=== PATIENT | female | born 1935 | race Caucasian/White ===

== ENCOUNTER 2018-03-15 14:06 | Inpatient (IN) | payer MEDICARE ==
[~2018-03-15] VITALS: Ht 160 cm; Wt 55.6 kg
[2018-03-15] MEDS ORDERED: ipratropium/albuterol 3ml nebule NEB ONE (14:15)
[2018-03-15] MEDS ORDERED: methylPREDNISolone sod succ 125mg/2ml vial IV ONE (14:15)
[2018-03-15 14:36] LABS: BASOPHILS % (AUTO) 0.1 % (0-1); EOSINOPHILS # (AUTO) 0.2 X10'3 (0-0.9); EOSINOPHILS % (AUTO) 1.6 % (0-6); HEMATOCRIT 33.7 % (35.0-45.0); HEMOGLOBIN 11.3 g/dl (12.0-16.0); LYMPHOCYTES # (AUTO) 1.7 X10'3 (1.1-4.8); LYMPHOCYTES % (AUTO) 10.7 % (21-51); MEAN CORPUSCULAR HEMOGLOBIN 29.2 PG (27.0-31.0); MEAN CORPUSCULAR HGB CONC 33.5 % (33.0-36.5); MEAN CORPUSCULAR VOLUME 87.2 FL (78-98); MEAN PLATELET VOLUME 7.6 FL (7.4-10.4); MONOCYTES % (AUTO) 6.4 % (2-12); NEUTROPHILS # (AUTO) 12.7 X10'3 (1.8-7.7); NEUTROPHILS % (AUTO) 81.2 % (42-75); PLATELET COUNT 330 X10'3 (140-440); RED BLOOD COUNT 3.86 X10'6 (4.20-5.60); RED CELL DISTRIBUTION WIDTH 14.7 % (11.5-14.5); WHITE BLOOD COUNT 15.6 X10'3 (4.5-11.0)
[2018-03-15 15:04] LABS: ALANINE AMINOTRANSFERASE 12 U/L (12-78); ALBUMIN 2.1 G/DL (3.4-5.0); ALBUMIN/GLOBULIN RATIO 0.4 (1.1-1.5); ALKALINE PHOSPHATASE 99 IU/L (46-116); ANION GAP 9 (8-16); ASPARTATE AMINO TRANSFERASE 34 U/L (10-37); BILIRUBIN,TOTAL 1.1 MG/DL (0.1-1.0); BLOOD UREA NITROGEN 13 MG/DL (7-18); BUN/CREATININE RATIO 16.9 (6.6-38.0); CALCIUM 9.3 MG/DL (8.5-10.1); CHLORIDE 91 MMOL/L (99-107); CREATININE 0.77 MG/DL (0.40-0.90); GLUCOSE 145 MG/DL (70-104); SODIUM 131 MMOL/L (135-145); TOTAL CARBON DIOXIDE 30.9 MMOL/L (24-32); TOTAL PROTEIN 7.1 G/DL (6.4-8.2); eGFR 72 ML/MIN
[2018-03-15 15:07] LABS: POTASSIUM 2.5 MMOL/L (3.5-5.1)
[2018-03-15] MEDS ORDERED: potassium Cl oral solution 20 MEQ/15 ML PO ONE (15:15)
[2018-03-15] MEDS ORDERED: CefTRIAXone 2gm/D5W 50ml 50 ML IV ONE (15:35)
[2018-03-15] MEDS ORDERED: azithromycin/NS 500mg/250ml 250 ML IV ONE (15:35)
[2018-03-15 15:47] LABS: CLARITY,URINE CLEAR (Clear); GLUCOSE, URINE NEGATIVE (Neg); KETONES,URINE >=80 mg/dl (Neg); LEUKOCYTE ESTERASE ,URINE NEGATIVE (Neg); NITRITES, URINE NEGATIVE (Neg); OCCULT BLOOD,URINE NEGATIVE (Neg); PROTEIN,URINE 30 mg/dl (Neg)
[2018-03-15 15:50] LABS: COLOR,URINE DARK YELLOW (Yellow); UA COLLECTION TYPE STRAIGHT CATH
[2018-03-15 15:54] LABS: BACTERIA,URINE 2+ /HPF (Neg); RBC,URINE 0-2 /HPF (0-2); SQUAMOUS EPITHELIAL CELL,UR FEW /LPF (FEW)
[2018-03-15 15:56] LABS: RENAL CELLS, URINE FEW /HPF
[2018-03-15 15:57] LABS: CELLULAR CAST 0-4 /LPF (NEGATIVE); HYALINE CASTS 0-3 /LPF (NEGATIVE)
[2018-03-15] MEDS ORDERED: enoxaparin 100mg/ml syringe SUBCUT ONE (16:25)
[2018-03-15] MEDS ORDERED: aspirin 81mg tab.chew PO ONE (16:25)
[2018-03-15] MEDS ORDERED: magnesium Cl slow-release 64mg tablet PO PRN (16:35)
[2018-03-15] MEDS ORDERED: magnesium 4gm in 100ml NS 100 ML IV PRN (16:35)
[2018-03-15] MEDS ORDERED: magnesium 1gm/100ml D5W IVPB 100 ML IV PRN (16:35)
[2018-03-15] MEDS ORDERED: magnesium hydroxide 30ml (MOM) UD suspension PO PRN (16:35)
[2018-03-15] MEDS ORDERED: potassium Cl 40MEQ/NS 500ml 500 ML IV PRN ×2 (16:35)
[2018-03-15] MEDS ORDERED: acetaminophen 325mg tablet PO PRN (16:35)
[2018-03-15] MEDS ORDERED: mag hydrox/Alum hydrox/simeth 30ml oral suspension PO PRN (16:35)
[2018-03-15] MEDS ORDERED: potassium Cl 20 mEq SR tablet PO PRN (16:35)
[2018-03-15] MEDS ORDERED: ondansetron/PF 4mg/2ml inj IV PRN (16:35)
[2018-03-15] MEDS ORDERED: non-formulary drug (Albuterol Sulfate (Proair Hfa) 2 PUFFS) INH SCH (16:40)
[2018-03-15] MEDS ORDERED: CefTRIAXone/D5W-Rocephin 1gm 50 ML IV SCH (16:40)
[2018-03-15] MEDS ORDERED: HYDR12.5 PO (16:41)
[2018-03-15] MEDS ORDERED: CARV-50 PO (16:41)
[2018-03-15] MEDS ORDERED: SIMV20TA5 PO (16:41)
[2018-03-15] MEDS ORDERED: PANT40TA4 PO (16:41)
[2018-03-15] MEDS ORDERED: CLOP75TA35 PO (16:41)
[2018-03-15] MEDS ORDERED: MONT10TA24 PO (16:41)
[2018-03-15] MEDS ORDERED: ALBU8.5H8 INH (16:42)
[2018-03-15] MEDS ORDERED: albuterol 2.5 MG/3 ML nebule NEB PRN (16:55)
[2018-03-15] MEDS: normal saline 1000ml 1,000 ML IV SCH (17:12)
[2018-03-15] MEDS ORDERED: iohexol 300mg/ml 100ml inj. ONE (18:00)
[2018-03-15 19:00] VITALS: BP 122/61
[2018-03-15] MEDS ORDERED: non-formulary drug (Simvastatin* (Zocor*) 20 MG) PO SCH (21:00)
[2018-03-15] MEDS: atorvastatin 10mg tablet PO SCH (21:54)
[2018-03-15] MEDS: carVEDilol 12.5mg tablet PO SCH (21:55)
[2018-03-15] MEDS: heparin, porcine 5000 units/ml vial SQ SCH (21:55)
[2018-03-15 23:00] VITALS: BP 107/52
[2018-03-16 02:55] LABS: ALANINE AMINOTRANSFERASE 13 U/L (12-78); ALBUMIN 1.6 G/DL (3.4-5.0); ALBUMIN/GLOBULIN RATIO 0.4 (1.1-1.5); ALKALINE PHOSPHATASE 84 IU/L (46-116); ANION GAP 7 (8-16); ASPARTATE AMINO TRANSFERASE 22 U/L (10-37); BILIRUBIN,TOTAL 0.5 MG/DL (0.1-1.0); BLOOD UREA NITROGEN 15 MG/DL (7-18); BUN/CREATININE RATIO 22.1 (6.6-38.0); CALCIUM 8.6 MG/DL (8.5-10.1); CHLORIDE 96 MMOL/L (99-107); CREATININE 0.68 MG/DL (0.40-0.90); GLUCOSE 184 MG/DL (70-104); POTASSIUM 3.2 MMOL/L (3.5-5.1); SODIUM 133 MMOL/L (135-145); TOTAL CARBON DIOXIDE 30.2 MMOL/L (24-32); TOTAL PROTEIN 5.9 G/DL (6.4-8.2); eGFR 83 ML/MIN
[2018-03-16 02:59] LABS: MAGNESIUM 1.9 MG/DL (1.5-2.4)
[2018-03-16 03:00] VITALS: BP 107/48
[2018-03-16 05:54] LABS: BASOPHILS % (AUTO) 0.1 % (0-1); EOSINOPHILS % (AUTO) 0.2 % (0-6); HEMATOCRIT 28.9 % (35.0-45.0); HEMOGLOBIN 9.9 g/dl (12.0-16.0); LYMPHOCYTES # (AUTO) 1.1 X10'3 (1.1-4.8); LYMPHOCYTES % (AUTO) 14.7 % (21-51); MEAN CORPUSCULAR HEMOGLOBIN 29.8 PG (27.0-31.0); MEAN CORPUSCULAR HGB CONC 34.2 % (33.0-36.5); MEAN PLATELET VOLUME 8.6 FL (7.4-10.4); MONOCYTES # (AUTO) 0.2 X10'3 (0-0.9); MONOCYTES % (AUTO) 2.7 % (2-12); NEUTROPHILS # (AUTO) 6.3 X10'3 (1.8-7.7); NEUTROPHILS % (AUTO) 82.3 % (42-75); PLATELET COUNT 249 X10'3 (140-440); RED BLOOD COUNT 3.33 X10'6 (4.20-5.60); RED CELL DISTRIBUTION WIDTH 14.2 % (11.5-14.5); WHITE BLOOD COUNT 7.6 X10'3 (4.5-11.0)
[2018-03-16 06:00] VITALS: BP 108/51
[2018-03-16] MEDS: K and/or MAG REPLACEMENT MC SCH (08:00)
[2018-03-16] MEDS: pantoprazole 40mg Tablet.DR PO SCH (08:36)
[2018-03-16] MEDS: montelukast 10mg tablet PO SCH (08:36)
[2018-03-16] MEDS: clopidogrel 75mg tablet PO SCH (08:37)
[2018-03-16] MEDS: azithromycin/NS 500mg/250ml 250 ML IV SCH (08:40)
[2018-03-16] MEDS: carVEDilol 12.5mg tablet PO SCH ×2 (08:49→20:00)
[2018-03-16] MEDS: heparin, porcine 5000 units/ml vial SQ SCH ×2 (08:50→20:00)
[2018-03-16] MEDS: CefTRIAXone/D5W-Rocephin 1gm 50 ML IV SCH (08:50)
[2018-03-16 11:00] VITALS: BP 122/48
[2018-03-16] MEDS: potassium Cl 20 mEq SR tablet PO PRN ×3 (12:26→20:51)
[2018-03-16 15:00] VITALS: BP 116/50
[2018-03-16] MEDS: normal saline 1000ml 1,000 ML IV SCH ×2 (15:00→21:27)
[2018-03-16 19:00] VITALS: BP 125/43
[2018-03-16] MEDS: atorvastatin 10mg tablet PO SCH (20:51)
[2018-03-16 23:00] VITALS: BP 103/48
[2018-03-17 06:00] VITALS: BP 111/53
[2018-03-17] MEDS: K and/or MAG REPLACEMENT MC SCH (08:00)
[2018-03-17] MEDS: azithromycin/NS 500mg/250ml 250 ML IV SCH (08:00)
[2018-03-17] MEDS: normal saline 1000ml 1,000 ML IV SCH (08:11)
[2018-03-17] MEDS: CefTRIAXone/D5W-Rocephin 1gm 50 ML IV SCH (08:17)
[2018-03-17] MEDS: heparin, porcine 5000 units/ml vial SQ SCH ×2 (08:27→20:15)
[2018-03-17] MEDS: carVEDilol 12.5mg tablet PO SCH ×2 (08:37→20:14)
[2018-03-17] MEDS: pantoprazole 40mg Tablet.DR PO SCH (08:37)
[2018-03-17] MEDS: clopidogrel 75mg tablet PO SCH (08:37)
[2018-03-17] MEDS: montelukast 10mg tablet PO SCH (08:38)
[2018-03-17 08:51] LABS: BASOPHILS # (AUTO) 0.1 X10'3 (0-0.2); BASOPHILS % (AUTO) 0.8 % (0-1); EOSINOPHILS % (AUTO) 0.1 % (0-6); HEMATOCRIT 35.4 % (35.0-45.0); HEMOGLOBIN 11.6 g/dl (12.0-16.0); LYMPHOCYTES # (AUTO) 1.8 X10'3 (1.1-4.8); LYMPHOCYTES % (AUTO) 19.3 % (21-51); MEAN CORPUSCULAR HEMOGLOBIN 29.1 PG (27.0-31.0); MEAN CORPUSCULAR HGB CONC 32.8 % (33.0-36.5); MEAN CORPUSCULAR VOLUME 88.7 FL (78-98); MEAN PLATELET VOLUME 7.8 FL (7.4-10.4); MONOCYTES # (AUTO) 0.6 X10'3 (0-0.9); MONOCYTES % (AUTO) 6.2 % (2-12); NEUTROPHILS # (AUTO) 6.9 X10'3 (1.8-7.7); NEUTROPHILS % (AUTO) 73.6 % (42-75); PLATELET COUNT 349 X10'3 (140-440); RED BLOOD COUNT 3.99 X10'6 (4.20-5.60); RED CELL DISTRIBUTION WIDTH 14.9 % (11.5-14.5); WHITE BLOOD COUNT 9.4 X10'3 (4.5-11.0)
[2018-03-17 09:01] LABS: ALBUMIN 1.9 G/DL (3.4-5.0); ANION GAP 5 (8-16); BLOOD UREA NITROGEN 12 MG/DL (7-18); CALCIUM 8.5 MG/DL (8.5-10.1); CHLORIDE 104 MMOL/L (99-107); GLUCOSE 103 MG/DL (70-104); MAGNESIUM 1.6 MG/DL (1.5-2.4); POTASSIUM 3.3 MMOL/L (3.5-5.1); SODIUM 141 MMOL/L (135-145); TOTAL CARBON DIOXIDE 32.5 MMOL/L (24-32); eGFR 69 ML/MIN
[2018-03-17 11:00] VITALS: BP 139/60
[2018-03-17] MEDS: levoFLOXACIN 500mg tablet PO SCH (11:26)
[2018-03-17] MEDS: potassium Cl 20 mEq SR tablet PO PRN ×2 (11:42→15:41)
[2018-03-17 15:00] VITALS: BP 112/50
[2018-03-17 18:00] VITALS: BP 139/65
[2018-03-17] MEDS: atorvastatin 10mg tablet PO SCH (20:14)
[2018-03-17] MEDS: lactobacillus rhamnosus 10,000 MMU CELLS/CAPSULE PO SCH (20:15)
[2018-03-17 22:00] VITALS: BP 110/49
[2018-03-18] MEDS: potassium Cl 20 mEq SR tablet PO PRN (01:24)
[2018-03-18 02:00] VITALS: BP 116/53
[2018-03-18] MEDS: normal saline 1000ml 1,000 ML IV SCH (02:03)
[2018-03-18 05:43] LABS: BASOPHILS % (AUTO) 0.4 % (0-1); EOSINOPHILS # (AUTO) 0.1 X10'3 (0-0.9); EOSINOPHILS % (AUTO) 1.5 % (0-6); HEMATOCRIT 30.5 % (35.0-45.0); HEMOGLOBIN 10.2 g/dl (12.0-16.0); LYMPHOCYTES # (AUTO) 1.7 X10'3 (1.1-4.8); LYMPHOCYTES % (AUTO) 31.3 % (21-51); MEAN CORPUSCULAR HEMOGLOBIN 29.5 PG (27.0-31.0); MEAN CORPUSCULAR HGB CONC 33.6 % (33.0-36.5); MEAN CORPUSCULAR VOLUME 87.9 FL (78-98); MEAN PLATELET VOLUME 8.1 FL (7.4-10.4); MONOCYTES # (AUTO) 0.5 X10'3 (0-0.9); MONOCYTES % (AUTO) 8.6 % (2-12); NEUTROPHILS # (AUTO) 3.2 X10'3 (1.8-7.7); NEUTROPHILS % (AUTO) 58.2 % (42-75); PLATELET COUNT 281 X10'3 (140-440); RED BLOOD COUNT 3.46 X10'6 (4.20-5.60); RED CELL DISTRIBUTION WIDTH 15.1 % (11.5-14.5); WHITE BLOOD COUNT 5.5 X10'3 (4.5-11.0)
[2018-03-18 06:00] VITALS: BP 132/54
[2018-03-18 07:38] LABS: ALANINE AMINOTRANSFERASE 13 U/L (12-78); ALBUMIN 1.7 G/DL (3.4-5.0); ALBUMIN/GLOBULIN RATIO 0.5 (1.1-1.5); ALKALINE PHOSPHATASE 69 IU/L (46-116); ANION GAP 4 (8-16); ASPARTATE AMINO TRANSFERASE 15 U/L (10-37); BILIRUBIN,TOTAL 0.3 MG/DL (0.1-1.0); BLOOD UREA NITROGEN 9 MG/DL (7-18); CALCIUM 8.7 MG/DL (8.5-10.1); CHLORIDE 107 MMOL/L (99-107); CREATININE 0.75 MG/DL (0.40-0.90); GLUCOSE 91 MG/DL (70-104); MAGNESIUM 1.6 MG/DL (1.5-2.4); POTASSIUM 4.3 MMOL/L (3.5-5.1); SODIUM 141 MMOL/L (135-145); TOTAL CARBON DIOXIDE 29.7 MMOL/L (24-32); TOTAL PROTEIN 5.4 G/DL (6.4-8.2); eGFR 74 ML/MIN
[2018-03-18] MEDS: heparin, porcine 5000 units/ml vial SQ SCH (07:40)
[2018-03-18] MEDS: CefTRIAXone/D5W-Rocephin 1gm 50 ML IV SCH ×2 (07:40→07:50)
[2018-03-18] MEDS: clopidogrel 75mg tablet PO SCH (07:41)
[2018-03-18] MEDS: montelukast 10mg tablet PO SCH (07:41)
[2018-03-18] MEDS: pantoprazole 40mg Tablet.DR PO SCH (07:41)
[2018-03-18] MEDS: lactobacillus rhamnosus 10,000 MMU CELLS/CAPSULE PO SCH (07:41)
[2018-03-18] MEDS: carVEDilol 12.5mg tablet PO SCH (07:41)
[2018-03-18] MEDS: azithromycin/NS 500mg/250ml 250 ML IV SCH (08:00)
[2018-03-18] MEDS: K and/or MAG REPLACEMENT MC SCH (08:00)
[2018-03-18 11:00] VITALS: BP 130/79
[2018-03-18] MEDS: levoFLOXACIN 500mg tablet PO SCH (12:30)
[2018-03-18] MEDS ORDERED: LEVO500T89 PO (13:38)
[2018-03-18] MEDS ORDERED: ASPI81TA30 PO (13:40)
== END 2018-03-18 17:48 | disposition home or self-care (01) | DRG 871 ==
LOC: ER 14:06 → ED HOLD 16:31 → CMPBEDREQ 19:28 → PCU 3S 19:32
PROVIDERS: ADMIT Internal Medicine; ATTEND Internal Medicine
DX: A41.9 Sepsis, unspecified organism (principal); J18.1 Lobar pneumonia, unspecified organism; I50.23 Acute on chronic systolic (congestive) heart failure; E87.1 Hypo-osmolality and hyponatremia; N39.0 Urinary tract infection, site not specified; J44.0 Chronic obstructive pulmonary disease with (acute) lower respiratory infection; I11.0 Hypertensive heart disease with heart failure; E87.6 Hypokalemia; E86.0 Dehydration; E78.00 Pure hypercholesterolemia, unspecified; R91.1 Solitary pulmonary nodule; R59.0 Localized enlarged lymph nodes; Z79.899 Other long term (current) drug therapy
CPT/HCPCS: 36415; 71045; 71260; 80048; 80053; 81001; 83605; 83735; 83880; 84145; 84484; 85025; 87040; 87070; 87088; 93005; 93306; 94640; 94760; 96365; 96368; 96375; 97110; 97116; 97161; 97530; 99285; A4353; A6212; A6213; J0456; J0696; J1644; J1650; J2930; J7030; Q9967

== ENCOUNTER 2023-08-21 09:18 | Emergency (ER) | payer MEDICARE ==
[~2023-08-21] VITALS: Ht 160 cm; Wt 45.5 kg
[~2023-08-21 09:18] MED LIST: ALBU8.5H17 INH; CARV-50 PO; CLOP75TA34 PO; LEVO-65 PO; MONT-40 PO; PANT40TA54 PO; SIMV-42 PO
[2023-08-21 10:00] VITALS: BP 131/68; PULSE 89; RESP 16; TEMP 98.3; O2SAT 96
[2023-08-21 12:03] LABS: BILIRUBIN,URINE NEGATIVE (Neg); CLARITY,URINE CLOUDY (Clear); COLOR,URINE YELLOW (Yellow); GLUCOSE, URINE NEGATIVE (Neg); KETONES,URINE NEGATIVE (Neg); LEUKOCYTE ESTERASE ,URINE MODERATE (Neg); NITRITES, URINE NEGATIVE (Neg); OCCULT BLOOD,URINE TRACE-INTACT (Neg); PH,URINE 5.5 (4.8-8.0); PROTEIN,URINE TRACE mg/dl (Neg); UROBILINOGEN,URINE 0.2 E.U/dL (0.2-1.0)
[2023-08-21 12:18] LABS: UA COLLECTION TYPE FOLEY CATH
[2023-08-21 12:21] LABS: BACTERIA,URINE 4+ /HPF (Neg); MUCUS STRANDS FEW /LPF (Neg); RBC,URINE 0-2 /HPF (0-2); SQUAMOUS EPITHELIAL CELL,UR MODERATE /LPF (FEW); WBC,URINE 30-50 /HPF (0-4); YEAST MODERATE /HPF (NEGATIVE)
[2023-08-21] MEDS ORDERED: NITR100C6 PO (12:27)
== END 2023-08-21 13:21 | disposition home or self-care (01) ==
LOC: ER 09:19
DX: N39.0 Urinary tract infection, site not specified (principal); Z46.6 Encounter for fitting and adjustment of urinary device
CPT/HCPCS: 81001; 87077; 87088; 87186; 99284